=== PATIENT | female | born 1955 | race Caucasian/White ===

== ENCOUNTER 2016-11-14 16:34 | Emergency (ER) | payer OTHER ==
[~2016-11-14] VITALS: Ht 167.6 cm; Wt 62.5 kg
--- OUTSIDE RECORDS SUMMARY | 2016-11-14 16:37 | XMS REPORT | Continuity of Care Document ---
Author Author [facility] [place], [place] Address Unknown Phone Unavailable Allergies Medications Problems Date Dx Coded Attending Type Code Diagnosis Diagnosed By 07/25/2014 Ot V76.12 08/13/2014 Craig BREAUX, Alvin Garcia Ot 240.9 08/13/2014 Craig BREAUX, Alvin Garcia Ot 246.9 08/20/2014 Craig BREAUX, Alvin Garcia Ot 246.9 09/23/2014 Craig BREAUX, Alvin Garcia Ot 240.9 09/23/2014 Craig BREAUX, Alvin Garcia Ot 246.9 09/23/2014 Craig BREAUX, Alvin Garcia Ot 246.9 09/23/2014 Craig BREAUX, Alvin Garcia Ot 246.9 Procedures Results Encounters ACCT No. Visit Date/Time Discharge Status Pt. Type Provider Facility Loc./Unit Complaint [id number] 09/29/2014 11:16:00 2014 23:59:59 CLS Outpatient Johnathan BREAUX, [facility] [id number] 09/02/2014 08:30:00 2014 23:59:59 CLS Preadmit Craig BREAUX, [facility] [id number] 09/01/2014 08:11:00 2014 23:59:59 CLS Outpatient Craig BREAUX, [facility] [id number] 07/29/2014 08:01:00 2013 23:59:59 CLS Outpatient Craig BREAUX, [facility] [id number] 07/25/2014 13:52:00 2013 23:59:59 CLS Outpatient Craig BREAUX, [facility] [id number] 10/02/2012 15:15:00 Document Registration
--- OUTSIDE RECORDS SUMMARY | 2016-11-14 16:38 | XMS REPORT | Continuity of Care Document ---
Author Author [facility] Address Unknown Phone Unavailable Allergies Medications Problems [...] Status Pt. Type Provider Facility Loc./Unit Complaint [id number] 09/29/2014 11:16:00 2014 23:59:59 CLS Outpatient Johnathan BREAUX, [facility] [id number] 09/02/2014 08:30:00 2014 23:59:59 CLS Preadmit Craig BREAUX, [facility] [id number] 09/01/2014 08:11:00 2014 23:59:59 CLS Outpatient Craig BREAUX, [facility] [id number] 07/29/2014 08:01:00 2013 23:59:59 CLS Outpatient Craig BREAUX, [facility] [id number] 07/25/2014 13:52:00 2013 23:59:59 CLS Outpatient Craig BREAUX, [facility] [id number] 10/02/2012 15:15:00 Document Registration
[2016-11-14] MEDS ORDERED: NAPROXEN 250 MG (NAPROSYN) TABLET PO ONE (16:55)
--- NOTE | 2016-11-14 18:23 | Diagnostic Imaging Report ---
INDICATION: Left rib injury COMPARISON: None FINDINGS: Two views of the left ribs demonstrate no obvious fracture or osseous lesion. No pneumothorax or effusion seen. IMPRESSION: Negative left rib series. Dictated by: Dictated on workstation # [id number]
--- NOTE | 2016-11-14 18:24 | Diagnostic Imaging Report ---
INDICATION: Fall, chest wall pain. COMPARISON: 10/08/14 FINDINGS: Frontal and lateral views of the chest demonstrate clear lungs bilaterally. The heart size is normal. There is no pneumothorax, effusion or infiltrate. No rib injury seen. IMPRESSION: Negative chest. Dictated by: Dictated on workstation # [id number]
--- NOTE | 2016-11-14 18:25 | Diagnostic Imaging Report ---
INDICATION: Fall, left knee pain COMPARISON: None FINDINGS: Three views of the left knee demonstrate minimal degenerative changes. There is no fracture or dislocation. There is soft tissue swelling noted. No osseous lesion. IMPRESSION: No fracture or dislocation. Dictated by: Dictated on workstation # [id number]
[2016-11-14] MEDS ORDERED: NAPR500T8 PO (18:31)
[2016-11-14] MEDS ORDERED: HYDR-3702 PO (18:31)
[2016-11-14 18:39] VITALS: BP 130/83
== END 2016-11-14 18:41 | disposition home or self-care (01) ==
LOC: ED 16:35
DX: S80.02XA Contusion of left knee, initial encounter (principal); S20.212A Contusion of left front wall of thorax, initial encounter; W01.198A Fall on same level from slipping, tripping and stumbling with subsequent striking against other object, initial encounter; Y93.01 Activity, walking, marching and hiking; Y92.480 Sidewalk as the place of occurrence of the external cause; Y99.9 Unspecified external cause status
CPT/HCPCS: 71020; 71100; 73564; 99283